=== PATIENT | male | born 1960 | race Caucasian/White ===

== ENCOUNTER 2016-12-02 15:14 | Emergency (ER) | payer OTHER ==
[2016-12-02 15:25] VITALS: O2SAT 96
[2016-12-02] MEDS ORDERED: HYDROmorphONE/DILAUDID 1 MG/ML SYR IVP ONE ×2 (15:58→16:55)
[2016-12-02] MEDS ORDERED: HYDROmorphONE/DILAUDID 1 MG/ML SYR ONE ×2 (16:00→16:47)
[2016-12-02] MEDS ORDERED: ONDANSETRON 4 MG/2 ML VIAL ONE (16:02)
[2016-12-02 16:04] LABS: % IMMATURE GRANULYOCYTES 0.1 % (0.0-1.1); ABSOLUTE IMMATURE GRANULOCYTES 0.01 10^3/uL (0.00-0.10); ADD DIFF? NO; ADD MORPH? NO; ADD SCAN? NO; ATYPICAL LYMPHOCYTE FLAG 10 (0-99); FRAGMENT RBC FLAG 0 (0-99); HEMATOCRIT 42.3 % (40.0-51.0); HEMOGLOBIN 14.3 g/dL (13.7-17.5); LEFT SHIFT FLG 0 (0-99); LIPEMIA HEMOLYSIS FLAG 90 (0-99); MEAN CELL HEMOGLOBIN CONCENTR. 33.8 g/dL (32.4-36.7); MEAN CELL VOLUME 85.8 fL (81.5-99.8); MEAN PLATELET VOLUME 9.2 fL (8.7-11.7); PLATELET CLUMPS FLAG 10 (0-99); PLATELET COUNT 193 10^3/uL (150-400); RED BLOOD CELL COUNT 4.93 10^6/uL (4.40-6.38); RED CELL DISTRIBUTION WIDTH 12.4 % (11.5-15.2)
[2016-12-02 16:26] LABS: ANION GAP 14 mEq/L (8-16); CALCIUM 9.5 mg/dL (8.5-10.4); CARBON DIOXIDE 26 mEq/l (22-31); CHLORIDE 103 mEq/L (97-110); CREATININE 1.2 mg/dL (0.7-1.3); GLOMERULAR FILTRATION RATE > 60; GLUCOSE 91 mg/dL (70-100); POTASSIUM 4.3 mEq/L (3.5-5.2); SODIUM 143 mEq/L (134-144)
[2016-12-02] MEDS ORDERED: ONDANSETRON 4 MG/2 ML VIAL IVP ONE (16:33)
[2016-12-02 16:36] LABS: COLOR YELLOW; LEUKOCYTE ESTERASE,URINE NEGATIVE (NEGATIVE); NITRITE,URINE NEGATIVE (NEGATIVE)
--- NOTE | 2016-12-02 16:37 | EDPHY ---
H & P Stated Complaint: lower abd and back pain Time Seen by Provider: 12/02/16 15:56 HPI/ROS: CHIEF COMPLAINT: left sided back pain and left abdominal pain HISTORY OF PRESENT ILLNESS: 56-year-old male presents to emergency department with left flank pain radiating to his left abdomen that started very lightly last night while lying in bed. Patient reports he woke up this morning and continued with the pain became much worse after having a bowel movement. Patient states the pain is intermittent with severe sharp stabbing pains. He reports mild nausea with the pain. He denies difficulty urinating, no blood in his urine, no history of kidney stones. No recent cough or cold, no fevers or chills, no chest pain or shortness of breath, no dizziness. REVIEW OF SYSTEMS: A comprehensive 10 point review of systems is otherwise negative aside from elements mentioned in the history of present illness. Source: Patient Exam Limitations: No limitations - Personal History Current Tetanus Diphtheria and Acellular Pertussis (TDAP): Unsure - Medical/Surgical History Other PMH: appy,high chol, reflux,back surgery - Family History Significant Family History: No pertinent family hx - Social History Smoking Status: Never smoked - Physical Exam Exam: Physical Exam Gen: Alert and Oriented, grimacing HEENT: PERRL, moist mucous membranes NECK: no meningismus CV: regular rate and regular rhythm PULM: CTAB, no wheezes ABDOMEN: soft, mild left lower quadrant tenderness to palpation, BS present BACK: Left CVA tenderness NEURO: Neurologically grossly intact EXTREMITIES: normal appearing SKIN: no rash or break in skin on exposed skin PSYCH: answers questions appropriately. Constitutional: Initial Vital Signs Temperature (C) 36.4 C 12/02/16 15:23 Heart Rate 58 L 12/02/16 15:23 Respiratory Rate 18 12/02/16 15:23 Blood Pressure 119/80 12/02/16 15:23 O2 Sat (%) 96 12/02/16 15:23 O2 Delivery Mode Room Air Allergies/Adverse Reactions: Penicillins Allergy (Verified 12/02/16 15:22) Home Medications: Medication Instructions Recorded Lipitor 12/02/16 Ondansetron Odt [Zofran Odt] 4 mg PO Q6-8PRN PRN #10 tab 12/02/16 PRILOSEC 12/02/16 Tamsulosin HCl 0.4 mg PO DAILY #7 cap 12/02/16 Zoloft 12/02/16 oxyCODONE/APAP 5/325 [Percocet 1 - 2 tab PO Q6H PRN #20 tab 12/02/16 5/325] Medical Decision Making - Diagnostics Imaging: CT abdomen pelvis without contrast shows a left distal ureteral calculi with mild hydronephrosis ED Course/Re-evaluation: IV established, CBC, chemistry panel and urinalysis obtained. Patient is given 1 mg of IV Dilaudid and 4 mg of Zofran. I am concerned that he has a kidney stone. CT abdomen pelvis without contrast will be ordered. Urinalysis shows 15-25 RBCs, 1-3 WBCs. CBC is unremarkable, chemistry panel shows normal renal function with a normal creatinine. 520pm-CT abdomen pelvis shows a left distal ureteral calculi [id number] with mild nephrosis. Patient will be discharged home with a prescription for Percocet, Zofran and tamsulosin. He is given return precautions for pain that is not controlled, fevers. Pt reports his pain has resolved. It is possible he has passed the stone. Differential Diagnosis: The differential diagnosis for the patient's flank pain included but was not limited to musculoskeletal causes, kidney stone, pyelonephritis, shingles, diverticulitis, appendicitis, and aortic aneurysm. - Data Points Laboratory Results: Laboratory Results 12/02/16 15:55 12/02/16 15:55 12/02/16 12/02/16 16:25 15:55 WBC 7.20 10^3/uL (3.80-9.50) RBC 4.93 10^6/uL (4.40-6.38) Hgb 14.3 g/dL (13.7-17.5) Hct 42.3 % (40.0-51.0) MCV 85.8 fL (81.5-99.8) MCH 29.0 pg (27.9-34.1) MCHC 33.8 g/dL (32.4-36.7) RDW 12.4 % (11.5-15.2) Plt Count 193 10^3/uL (150-400) MPV 9.2 fL (8.7-11.7) Neut % (Auto) 62.7 % (39.3-74.2) Lymph % (Auto) 28.5 % (15.0-45.0) Metcalfe % (Auto) 6.5 % (4.5-13.0) Eos % (Auto) 1.9 % (0.6-7.6) Baso % (Auto) 0.3 % (0.3-1.7) Nucleat RBC Rel Count 0.0 % (0.0-0.2) Absolute Neuts (auto) 4.51 10^3/uL (1.70-6.50) Absolute Lymphs (auto) 2.05 10^3/uL (1.00-3.00) Absolute Monos (auto) 0.47 10^3/uL (0.30-0.80) Absolute Eos (auto) 0.14 10^3/uL (0.03-0.40) Absolute Basos (auto) 0.02 10^3/uL (0.02-0.10) Absolute Nucleated RBC 0.00 10^3/uL (0-0.01) Immature Gran % 0.1 % (0.0-1.1) Immature Gran # 0.01 10^3/uL (0.00-0.10) Sodium 143 mEq/L (134-144) Potassium 4.3 mEq/L (3.5-5.2) Chloride 103 mEq/L (97-110) Carbon Dioxide 26 mEq/l (22-31) Anion Gap 14 mEq/L (8-16) BUN 17 mg/dL (7-23) Creatinine 1.2 mg/dL (0.7-1.3) Estimated GFR > 60 Glucose 91 mg/dL (70-100) Calcium 9.5 mg/dL (8.5-10.4) Urine Color YELLOW Urine Appearance CLEAR Urine pH 6.0 (5.0-7.5) Ur Specific Newcomb 1.014 (1.002-1.030) Urine Protein NEGATIVE (NEGATIVE) Urine Ketones NEGATIVE (NEGATIVE) Urine Blood 2+ H (NEGATIVE) Urine Nitrate NEGATIVE (NEGATIVE) Urine Bilirubin NEGATIVE (NEGATIVE) Urine Urobilinogen NEGATIVE EU (0.2-1.0) Ur Leukocyte Esterase NEGATIVE (NEGATIVE) Urine RBC 15-25 H /hpf (0-3) Urine WBC 1-3 /hpf (0-3) Ur Epithelial Cells TRACE /lpf (NONE-1+) Ur Culture Indicated? NOT INDICATED (NI) Urine Glucose NEGATIVE (NEGATIVE) Medications Given: Discontinued Medications Hydromorphone HCl (Dilaudid) 0.5 mg IVP EDNOW ONE Stop: 12/02/16 15:59 Last Admin: 12/02/16 16:05 Dose: 0.5 mg Hydromorphone HCl (Dilaudid) 1 mg IVP EDNOW ONE Stop: 12/02/16 16:56 Last Admin: 12/02/16 16:57 Dose: 1 mg Sodium Chloride (Ns) 1,000 mls @ 0 mls/hr IV ONCE ONE PRN Reason: Wide Open Stop: 12/02/16 16:50 Last Admin: 12/02/16 16:54 Dose: 1,000 mls Ketorolac Tromethamine (Toradol) 30 mg IVP EDNOW ONE Stop: 12/02/16 16:50 Last Admin: 12/02/16 16:54 Dose: 30 mg Ondansetron HCl (Zofran) 4 mg IVP EDNOW ONE Stop: 12/02/16 16:34 Last Admin: 12/02/16 16:37 Dose: 4 mg Departure - Departure Disposition: Home, Routine, Self-Care Clinical Impression: Left ureteral calculus Condition: Good Instructions: Kidney Stones (DC) Additional Instructions: Kidney stone: Take Percocet as needed for severe pain. Use Zofran as needed for nausea. Take ibuprofen 600 mg every 6-8 hours as needed for moderate pain. This will also help with inflammation. Take Flomax as directed 0.4mg once daily for 7 days. Followup with urology as directed for symptoms not improving. Strain urine. Return to the emergency department if you have worsening pain, fevers, persistent vomiting, or other concerns. Referrals: Timur Arguello MD [Medical Doctor] - As per Instructions (urologist environmental services floor tech) Prescriptions: oxyCODONE/APAP 5/325 [Percocet 5/325] 1 - 2 tab PO Q6H PRN #20 tab PRN Reason: Pain, Severe Tamsulosin HCl 0.4 mg PO DAILY #7 cap Ondansetron Odt [Zofran Odt] 4 mg PO Q6-8PRN PRN #10 tab PRN Reason: Nausea/Vomiting, Can'T Take Po
[2016-12-02 16:44] LABS: RBC,URINE 15-25 /hpf (0-3)
[2016-12-02] MEDS ORDERED: NS 1,000 ML IV ONE (16:49)
[2016-12-02] MEDS ORDERED: KETOROLAC 30 MG/1 ML SDV IVP ONE (16:49)
[2016-12-02] MEDS ORDERED: TAMSULOSIN HCL 0.4 MG CAP PO ONE (17:25)
--- NOTE | 2016-12-02 17:43 | CT ---
CT Scan of the Abdomen and Pelvis (Without IV Contrast) Clinical Indications: Left flank pain since last night. Technique: No intravenous contrast was given. Multidetector helical CT imaging is performed from th e diaphragm to the symphysis pubis. Dose reduction techniques were utilized. Findings: There is a hypodense lesion in the spleen that measures 2.6 x 2.6 cm. Its Hounsfield unit measures about 30. It is nonspecific. There is mild left-sided hydronephrosis and hydroureter going d own to the distal ureter. The stone measures 2.5 x 3 mm. It is about to get into the bladder. Above t he stone, the distal ureter is focally very dilated at 2.5 x 2.5 cm, almost in the form of a round cy st. This can be followed to a dilated ureter proximal and distal. Right side is normal. No ureteral or renal stones. There are mild sigmoid diverticula. No inflammatory changes. Bladder is overall normal. The rest of the noncontrasted evaluation of the abdomen and pelvis is within normal limits. There is an incidental left iliac bone island. Impressions: 1. There is a 2.5 x 3 mm distal left ureteral stone that is about to enter the bladder. 2. Focal cystic or rounded dilatation of the distal ureter just above the stone at 2.5 x 2.5 cm, whil e the rest of the dilated ureter measures less than 5 mm. Question ureteral diverticulum? 3. Hypodense lesion in the spleen at 2.6 x 2.6 cm, unclear significance. Differential includes a sple jordan cyst, hemangioma, or other splenic lesions. If clinically needed, further evaluation can start wi th an ultrasound. Findings were discussed with Jaclyn Pineda NP. Attention: This examination does not use radiographic contrast, and as such, provides only a limite d evaluation of the abdomen, pelvis, and retroperitoneum. If there is further clinical suspicion for pathological conditions, a complete CT evaluation of the abdomen and pelvis utilizing intravenous, o ral, and rectal contrast should be considered.
[2016-12-02 17:49] VITALS: BP 133/78; PULSE 70; RESP 14; TEMP 97.9
== END 2016-12-02 17:48 | disposition home or self-care (01) ==
DX: N20.1 Calculus of ureter (principal)
CPT/HCPCS: 96374; J1170; J1885; J2405